=== PATIENT | female | born 2000 | race Two or more races ===

== ENCOUNTER 2019-10-16 19:56 | Emergency (ER) | payer OTHER ==
[~2019-10-16] VITALS: Ht 157.5 cm; Wt 66.7 kg
--- NOTE | 2019-10-16 20:14 | NUR ---
PT C/O VOMITING AND ABD PAIN STARTING LAST NIGHT. DENIES EATING ANYTHING DIFFERENT. CONNECTED TO MONITORING. CALL LIGHT IN REACH. AWAITING ORDERS AT THIS TIME.
[2019-10-16] MEDS ORDERED: ONDANSETRON 2MG/ML, 2ML ONE (20:28)
[2019-10-16] MEDS ORDERED: ONDANSETRON 2MG/ML, 2ML IVPush ONE (20:30)
[2019-10-16] MEDS ORDERED: SODIUM CHLORIDE FLUSH 10ML SYR IVF ONE (20:30)
[2019-10-16] MEDS ORDERED: SODIUM CHLORIDE 0.9% 1,000ML IVBOLUS ONE (20:30)
[2019-10-16 20:37] LABS: BASOPHILS # (AUTO) 0.01 x10^3/uL (0-0.3); BASOPHILS % (AUTO) 0 % (0-1); EOSINOPHILS # (AUTO) 0.01 x10^3/uL (0-0.8); EOSINOPHILS % (AUTO) 0 % (1-7); LYMPHOCYTES # (AUTO) 0.48 x10^3/uL (1-6.1); LYMPHOCYTES % (AUTO) 5 % (22-44); MD NO; MEAN CORPUSCULAR HEMOGLOBIN 29.1 pg (27.0-34.8); MEAN CORPUSCULAR HGB CONC 33.9 g/dL (32.4-35.8); MEAN CORPUSCULAR VOLUME 85.8 fL (80-100); MEAN PLATELET VOLUME 8.1 fL (7.4-10.4); MONOCYTES # (AUTO) 0.36 x10^3/uL (0-1.4); MONOCYTES % (AUTO) 4 % (2-9); NEUTROPHILS # (AUTO) 9.43 x10^3/uL (1.8-8.0); NEUTROPHILS % (AUTO) 92 % (42-75); PLATELET COUNT 315 x10^3/uL (130-400); RED BLOOD COUNT 4.92 x10^6/uL (3.82-5.3); RED CELL DISTRIBUTION WIDTH 14.2 % (9.6-15.2)
--- NOTE | 2019-10-16 20:42 | NUR ---
IV START. IVF RUNNING, MEDS ADMIN PER NOV. PT RESTING COMFORTABLY ON RMASPETH. SPARKLE.
[2019-10-16 20:49] LABS: ALANINE AMINOTRANSFERASE 18 U/L (12-78); ALBUMIN 4.1 g/dL (3.4-5.0); ANION GAP 7 mmol/L (5-15); CALCIUM 8.7 mg/dL (8.5-10.1); CHLORIDE 107 mmol/L (98-107); CREATININE 0.54 mg/dL (0.55-1.02)
[2019-10-16 20:53] LABS: ALKALINE PHOSPHATASE 90 U/L (45-117); BILIRUBIN,TOTAL 0.8 mg/dL (0.2-1.0); TOTAL PROTEIN 7.6 g/dL (6.4-8.2)
[2019-10-16] MEDS ORDERED: PLEASE ENTER HEIGHT AND WEIGHT MC SCH (21:00)
[2019-10-16 21:22] VITALS: BP 107/54
--- NOTE | 2019-10-16 21:23 | NUR ---
PROVIDER AT BEDSIDE TO UPDATE PT ON POC.
--- NOTE | 2019-10-16 21:26 | NUR ---
PT HAS WATER AT BEDSIDE AND HAS BEEN SIPPING ON IT. PT DENIES N/V.
== END 2019-10-16 21:59 | disposition home or self-care (01) ==
LOC: ED 21:23
DX: A08.4 Viral intestinal infection, unspecified (principal); R00.0 Tachycardia, unspecified; R11.2 Nausea with vomiting, unspecified
CPT/HCPCS: 36415; 80053; 84703; 85025; 96361; 96374; 99283; J2405; J7030

== ENCOUNTER 2020-02-21 18:13 | Emergency (ER) | payer OTHER ==
[~2020-02-21] VITALS: Ht 157.5 cm; Wt 64.9 kg
[2020-02-21 18:21] VITALS: BP 112/48
== END 2020-02-21 19:28 | disposition home or self-care (01) ==
LOC: ED 19:08
DX: M54.2 Cervicalgia (principal); V49.49XA Driver injured in collision with other motor vehicles in traffic accident, initial encounter; Y93.89 Activity, other specified; Y92.488 Other paved roadways as the place of occurrence of the external cause; Y99.8 Other external cause status
CPT/HCPCS: 99283

== ENCOUNTER 2020-02-23 11:28 | Emergency (ER) | payer OTHER ==
[~2020-02-23] VITALS: Ht 157.5 cm; Wt 66.0 kg
[2020-02-23 11:35] VITALS: BP 95/55
--- NOTE | 2020-02-23 11:40 | NUR ---
PT AMBULATED FROM TRIAGE TO ROOM W/ A STEADY GAIT.
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
[2020-02-23] MEDS ORDERED: METHOCARBAMOL 750 MG TABLET ONE (11:56)
[2020-02-23] MEDS ORDERED: IBUPROFEN 600 MG TABLET ONE (11:56)
--- NOTE | 2020-02-23 11:59 | NUR ---
PT MEDICATED PER EMAR.
[2020-02-23] MEDS ORDERED: IBUPROFEN 200 MG TABLET PO ONE (12:00)
[2020-02-23] MEDS ORDERED: METHOCARBAMOL 750 MG TABLET PO ONE (12:00)
--- NOTE | 2020-02-23 12:32 | NUR ---
ALL TESTS RESULTED. PT IS UP FOR RECHECK AT THIS TIME.
== END 2020-02-23 13:09 | disposition home or self-care (01) ==
LOC: ED 12:53
DX: S16.1XXA Strain of muscle, fascia and tendon at neck level, initial encounter (principal); M25.511 Pain in right shoulder; V89.2XXA Person injured in unspecified motor-vehicle accident, traffic, initial encounter; Y93.89 Activity, other specified; Y92.488 Other paved roadways as the place of occurrence of the external cause; Y99.8 Other external cause status
CPT/HCPCS: 72050; 99284